=== PATIENT | male | born 1975 | race Caucasian/White ===

== ENCOUNTER 2022-08-28 17:56 | Emergency (ER) | payer BC ==
[~2022-08-28] VITALS: Ht 180.3 cm; Wt 83.9 kg
[2022-08-28 18:13] VITALS: BP_SYST 131
--- NOTE | 2022-08-28 18:20 | NUR ---
Pt brought by self, A&Ox4, pt presents to ER with headache and nausea x 1 week , skin pink and warm , cap refill <3, VSS.
--- NOTE | 2022-08-28 19:47 | NUR ---
Patient to ER bed 04 to gown for evaluation. Side rails up. Report given to Ricarda STEWARD .
--- NOTE | 2022-08-28 20:14 | NUR ---
Dr. Goodman at bedside examining the patient.
[2022-08-28 21:32] VITALS: BP_SYST 131
--- NOTE | 2022-08-28 21:33 | NUR ---
Patient given written and verbal discharge instructions and verbalizes understanding. ER MD discussed with patient the results and treatment provided. Patient in stable condition. ID arm band removed. . No Rx given. Patient educated on pain management and to follow up with PMD. Pain Scale 0/10. Opportunity for questions provided and answered. Medication side effect fact sheet provided.
== END 2022-08-28 21:32 | disposition home or self-care (01) ==
LOC: SED 17:56
DX: R51.9 Headache, unspecified (principal); R11.0 Nausea; Z79.899 Other long term (current) drug therapy
CPT/HCPCS: 70450-TC; 76376; 99284